=== PATIENT | male | born 1955 | race Caucasian/White ===

== ENCOUNTER 2016-12-27 08:45 | Inpatient (IN) | payer BC ==
[~2016-12-27] VITALS: Ht 188 cm; Wt 94.1 kg
[2016-12-27 10:02] LABS: BASOPHILS 0 % (0-2); EOSINOPHILS 1.6 % (0-7); HEMOGLOBIN 14.7 g/dL (13.5-17.5); IMMATURE GRANULOCYTES 0.3 % (0-5); LYMPHOCYTES 8.9 % (15-50); MCH 29.8 pg (26.0-34.0); MCHC 34.2 g/dL (31.0-37.0); MEAN PLATELET VOLUME 9.8 fL (7.4-10.4); MONOCYTES 5.5 % (2-11); NEUTROPHILS 83.7 % (40-80); PLATELET COUNT 226 10x3/uL (130-400); RBC 4.94 10x6/uL (4.20-6.10); RDW 13.8 % (11.5-14.5); WBC 8.7 10x3/uL (4.8-10.8)
[2016-12-27 10:09] LABS: APPEARANCE CLEAR (CLEAR); COLOR YELLOW (YELLOW); SPECIFIC GRAVITY 1.015 (1.005-1.020)
[2016-12-27 10:10] LABS: BILIRUBIN NEGATIVE (NEGATIVE); GLUCOSE NEGATIVE (NEGATIVE); KETONE MODERATE mg/dL (NEGATIVE); LEUKOCYTE ESTERASE NEGATIVE (NEGATIVE); NITRITE NEGATIVE (NEGATIVE); PROTEIN NEGATIVE (NEGATIVE); UROBILINOGEN NORMAL (NORMAL)
[2016-12-27 10:35] LABS: ALBUMIN 3.8 g/dL (3.4-5.0); ALKALINE PHOSPHATASE 88 U/L (46-116); ALT (SGPT) 26 U/L (10-68); BILIRUBIN - TOTAL 1.33 mg/dL (0.2-1.3); CALC OSMOLALITY 286 mosm/kg (275-300); CALCIUM 8.8 mg/dL (8.5-10.1); CHLORIDE - SERUM 108 mmol/L (98-107); CREATININE - SERUM 0.9 mg/dL (0.6-1.3); GLUCOSE 124 mg/dL (74-106); POTASSIUM - SERUM 4.4 mmol/L (3.5-5.1); PROTEIN - SERUM 7.4 g/dL (6.4-8.2); SODIUM 143 mmol/L (136-145); UREA NITROGEN 16 mg/dL (7-18); eGFR NON AFRICAN AMERICAN > 90 mL/min (90-120)
[2016-12-27 10:49] LABS: CREATINE KINASE 328 UL (21-232); MAGNESIUM - SERUM 2.2 mg/dL (1.8-2.4)
[2016-12-27 10:51] LABS: CKMB 2.7 U/L (0.0-3.6)
[2016-12-27] MEDS ORDERED: ZESTORETIC 10/11 TAB PO (13:58)
[2016-12-27 14:05] VITALS: BP 144/87; Ht 188 cm; Wt 94.1 kg
--- NOTE | 2016-12-27 14:28 | NUR ---
PT ARRIVED TO ROOM A&O WITH FAMILY AT BEDSIDE. ADMISSION WORKUP COMPLETED. PT DENIES ANY CURRENT NAUSEA C/O SLIGHT DIZZINESS AND HAS SCHEDULED MEDICATIONS FOR IT. PT HAS A L.AC PIV CDI WITH SWAB CAPS IN USE. TELEMETRY APPLIED ORDERED. NC @2L IN PLACE AND PTS RR NONLABORED. PT DENIES ANY CURRENT PAIN OR NEEDS. CL IN REACH, BED IN LOWEST, SIDE RAILS X2. WILL CPOC.
[2016-12-27 16:05] VITALS: BP 138/84
--- NOTE | 2016-12-27 17:27 | NUR ---
MEDICATED FOR NAUSEA AND VOMITING AT THIS TIME. PATIENT SITTING TO SIDE OF BED. FEMALE VISITOR ALSO IN ROOM. CALL LIGHT WITHIN REACH.
[2016-12-27 19:00] VITALS: BP 135/87
--- NOTE | 2016-12-27 20:49 | NUR ---
HS MEDS GIVEN WITH FRESH ICE WATER. PT DENIES PAIN OR NEEDS. TALYA JIMENEZ AT BED SIDE.
--- NOTE | 2016-12-28 00:36 | NUR ---
RESTING WITH EYES CLOSED, RESPERATIONS EVEN, NO S/S DISTRESS NOTED.
--- NOTE | 2016-12-28 01:06 | NUR ---
CALL LIGHT IN REACH, WILL CONTINUE WITH PLAN OF CARE.
[2016-12-28 04:00] VITALS: BP 126/75
[2016-12-28 06:05] LABS: BASOPHILS 0.1 % (0-2); EOSINOPHILS 3.6 % (0-7); HEMATOCRIT 41.2 % (42.0-54.0); HEMOGLOBIN 14.2 g/dL (13.5-17.5); IMMATURE GRANULOCYTES 0.2 % (0-5); LYMPHOCYTES 28.1 % (15-50); MCH 29.9 pg (26.0-34.0); MCHC 34.5 g/dL (31.0-37.0); MCV 86.7 fL (80.0-100.0); MEAN PLATELET VOLUME 10.1 fL (7.4-10.4); MONOCYTES 7.9 % (2-11); NEUTROPHILS 60.1 % (40-80); PLATELET COUNT 233 10x3/uL (130-400); RBC 4.75 10x6/uL (4.20-6.10); RDW 14.1 % (11.5-14.5); WBC 9.1 10x3/uL (4.8-10.8)
[2016-12-28 06:32] LABS: ALBUMIN 3.4 g/dL (3.4-5.0); ALKALINE PHOSPHATASE 76 U/L (46-116); ALT (SGPT) 22 U/L (10-68); CALC OSMOLALITY 280 mosm/kg (275-300); CALCIUM 8.6 mg/dL (8.5-10.1); CARBON DIOXIDE 26.4 mmol/L (21.0-32.0); CHLORIDE - SERUM 105 mmol/L (98-107); GLUCOSE 103 mg/dL (74-106); PROTEIN - SERUM 6.7 g/dL (6.4-8.2); SODIUM 141 mmol/L (136-145); UREA NITROGEN 12 mg/dL (7-18); eGFR NON AFRICAN AMERICAN 81 mL/min (90-120)
[2016-12-28 06:33] LABS: POTASSIUM - SERUM 3.6 mmol/L (3.5-5.1)
[2016-12-28 08:00] VITALS: BP 127/87
[2016-12-28 12:00] VITALS: BP 143/81
--- NOTE | 2016-12-28 14:38 | NUR ---
Patient Name: SIMRAN ROSADO Admission Status: ER Accout number: [id number] Admission Date: 12-27-2016 : 1955 Admission Diagnosis: Attending: LUX Current LOS: 1 Anticipated DC Date: 12-28-2016 Planned Disposition: Home Primary Insurance: [employer] Discharge Planning Comments: * Is the patient Alert and Oriented? Yes 0 * How many steps to enter\exit or inside your home? 3-4 0 * PCP DR. MORALES IN [place] TRYING TO ESTABLISH WITH DR. CASILLAS IN [place] 0 * Pharm[facility] [place] WANTS TO USE [facility] [place] OR [facility] IN [place] 0 * Preadmission Environment Home with Family 0 * ADLs Independent 0 * Equipment None 0 * Other Equipment NO MEDICAL EQUIPMENT PROVIDER PREFERENCE 0 * List name and contact numbers for known caregivers / representatives who currently or will assist patient after discharge: BARBARA NOEL, SIGNIFICANT OTHER, 0 * Community resources currently utilized None 0 * Please name any agencies selected above. NONE 0 * Additional services required to return to the preadmission environment? No 0 * Can the patient safely return to the preadmission environment? Yes 0 * Has this patient been hospitalized within the prior 30 days at any hospital? No 0 CM MET WITH PT AND SIGNIFICANT OTHER IN ROOM TO DISCUSS DISCHARGE PLANNING AND NEEDS. PT REPORTS LIVING AT HOME INDEPENDENTLY WITH SIGNIFICANT OTHER. PT HAS NO MEDICAL EQUIPMENT AND NO OUTSIDE SERVICES ASSISTING IN THE HOME. CM DISCUSSED AVAILABILITY OF HOME HEALTH, REHAB SERVICES AND MEDICAL EQUIPMENT. PT DENIES DISCHARGE NEEDS, REPORTS THREE MONTHS AGO HE RAN A HALF MARATHON AND WAS CUTTING [employer] THIS WEEKEND. PT REPORTS HIS SIGNIFCANT OTHER IS DRIVING HOME TODAY AT DISCHARGE. Pie Chef: Moisés Crews
--- NOTE | 2016-12-28 14:44 | NUR ---
IV AND TELEMETRY DCD. DC PLANS GIVEN. UNDERSTANDING VOICED. ESCORTED TO CAR BY W/C.
== END 2016-12-28 14:47 | disposition home or self-care (01) | DRG 149 ==
LOC: D.ER 08:45 → D.M2 12:38 → OBSVTIME 12:38 → D.M2 14:06
PROVIDERS: Emergency Medicine; ADMIT Family Medicine
DX: R42 Dizziness and giddiness (principal); T68.XXXA Hypothermia, initial encounter